=== PATIENT | male | born 1985 | race Hispanic/Latino ===

== ENCOUNTER 2016-10-09 23:57 | Observation (INO) | payer SELFPAY ==
[2016-10-10] MEDS ORDERED: Sodium Chloride 0.9% 1,000 ML IV STA (00:52)
--- NOTE | 2016-10-10 01:26 | ED PDOC ---
HPI: Abdomen Time Seen by Provider: 10/10/16 00:09 Chief Complaint (Nursing): Abdominal Pain Chief Complaint (Provider): abd pain, n/v/d History Per: Patient History/Exam Limitations: no limitations Onset/Duration Of Symptoms: Days Outside of [place] travel?: No Current Symptoms Are (Timing): Still Present Additional Complaint(s): 31yo male to female transgender patient presents to the ED with c/o epigastric and LUQ abdominal pain with associated n/v/d x 3 days. Patient reports 10 episodes of each and describes as watery. Last episode of vomiting was blood tinged. Denies drug use, alcohol use, abdominal surgeries. Of note, patient was sleeping prior to history and physical and needed to be physically awakened. Past Medical History Reviewed: Historical Data, Nursing Documentation, Vital Signs Vital Signs: Last Vital Signs Temp 98.7 F 10/10/16 00:00 Pulse 116 H 10/10/16 00:00 Resp 16 10/10/16 00:00 BP 122/66 10/10/16 00:00 Pulse Ox 100 10/10/16 01:32 - Medical History PMH: No Chronic Diseases - Family History Family History: States: No Known Family Hx - Social History Alcohol: None Drugs: Denies - Allergies Allergies/Adverse Reactions: Allergies Allergy/AdvReac Type Severity Reaction Status Date / Time acetaminophen [From Tylenol] Allergy RASH Verified 10/10/16 00:00 aspirin Allergy RASH Verified 10/10/16 00:00 Penicillins Allergy RASH Verified 10/10/16 00:00 Review of Systems ROS Statement: Except As Marked, All Systems Reviewed And Found Negative Gastrointestinal: Positive for: Nausea, Vomiting, Abdominal Pain (epigastric, LUQ ), Diarrhea Physical Exam - Reviewed Nursing Documentation Reviewed: Yes Vital Signs Reviewed: Yes - Physical Exam Appears: Positive for: Well, No Acute Distress Head Exam: Positive for: ATRAUMATIC, NORMAL INSPECTION, NORMOCEPHALIC Skin: Positive for: Normal Color, Warm, Dry Eye Exam: Positive for: Normal appearance, EOMI, PERRL ENT: Positive for: Normal ENT Inspection Neck: Positive for: Normal, Painless ROM, Supple Cardiovascular/Chest: Positive for: Regular Rate, Rhythm. Negative for: Murmur , Tachycardia Respiratory: Positive for: Normal Breath Sounds. Negative for: Wheezing, Respiratory Distress Gastrointestinal/Abdominal: Positive for: Bowel Sounds, Soft, Tenderness ( epigastric, LUQ ) Back: Positive for: Normal Inspection. Negative for: L CVA Tenderness, R CVA Tenderness Extremity: Positive for: Normal ROM. Negative for: Deformity, Swelling Neurologic/Psych: Positive for: Alert, Oriented - Laboratory Results Result Diagrams: 10/10/16 01:39 10/10/16 01:39 - ECG O2 Sat by Pulse Oximetry: 100 Pulse Ox Interpretation: Normal (RA) Medical Decision Making Medical Decision Makin: Impression: unspecified abdominal pain Plan: CMP, lipase, CBC, UA IVF, Protonix 40mg IVP, Zofran 4mg IVP reassess 330AM: Pt. sleeping in room, needing to be once again physically woken up. Tolerating PO, told patient to f/u w/ PMD or return for worsening or concerning symptoms. Scribe Attestation: Documented by Jose Souza acting as a scribe for Jimenez Sr MD. Provider Scribe Attestation: All medical record entries made by the Scribe were at my direction and personally dictated by me. I have reviewed the chart and agree that the record accurately reflects my personal performance of the history, physical exam, medical decision making, and the department course for this patient. I have also personally directed, reviewed, and agree with the discharge instructions and disposition. Disposition - Clinical Impression Clinical Impression: Gastroenteritis - Disposition Referrals: [facility] [Outside] Disposition: Routine/Home Disposition Time: 03:30 Condition: IMPROVED Instructions: Gastroenteritis (ED) - POA Present On Arrival: None
[2016-10-10 01:44] LABS: BASO % 0.3 % (0.0-2.0); EOS # 0.2 K/uL (0.0-0.7); EOS % 2.3 % (0.0-4.0); HEMATOCRIT 29.6 % (35.0-51.0); LYMPH # 1.3 K/uL (1.0-4.3); LYMPH % 19.9 % (20.0-40.0); MEAN CELL VOLUME 83.4 fl (80.0-94.0); MEAN CORPUSCULAR HEMOGLOBIN 26.9 pg (27.0-31.0); MEAN CORPUSCULAR HGB CONC 32.2 g/dL (33.0-37.0); MEAN PLATELET VOLUME 8.3 fl (7.2-11.7); MONO # 0.5 K/uL (0.0-0.8); MONO % 8.2 % (0.0-10.0); NEUT # 4.6 K/uL (1.8-7.0); NEUT % 69.3 % (50.0-75.0); RED CELL DISTRIBUTION WIDTH 17.6 % (11.5-14.5); WHITE BLOOD COUNT 6.7 K/uL (4.8-10.8)
[2016-10-10 01:50] LABS: CHLORIDE 108 mmol/L (98-107); SODIUM 142 mmol/l (132-148)
[2016-10-10 01:51] LABS: POTASSIUM 3.4 MMOL/L (3.6-5.0)
[2016-10-10 01:53] LABS: ALB/GLOB RATIO 1.3 (1.0-2.1); ALKALINE PHOSPHATASE 54 U/L (38-126); AST/SGOT 20 U/L (17-59); BILIRUBIN,TOTAL 0.3 mg/dl (0.2-1.3); BLOOD UREA NITROGEN 10 mg/dl (9-20); CARBON DIOXIDE 22 mmol/L (22-30); GFR AFRICAN-AMERICAN > 60; TOTAL PROTEIN 6.5 G/DL (6.3-8.2)
[2016-10-10 01:54] LABS: ALT/SGPT 26 U/L (21-72); GLUCOSE,RANDOM 97 mg/dL (75-110); LIPASE 82 U/L (23-300)
[2016-10-10 04:28] VITALS: PULSE 69
[2016-10-10] MEDS ORDERED: Iohexol 240 (50 ml) ONE (04:31)
[2016-10-10] MEDS ORDERED: Iohexol 240 (50 ml) PO ONE (04:31)
--- NOTE | 2016-10-10 07:06 | ED PDOC ---
- Laboratory Results Result Diagrams: 10/10/16 01:39 10/10/16 01:39 - ECG O2 Sat by Pulse Oximetry: 98 Medical Decision Making Medical Decision Makin:00 Patient signed out to me by Dr. Sr. Pending CT A/P Patient was seen overnight after presenting complaining of abdominal pain. Labs were consistent with mild anemia but otherwise grossly normal. UA negative. 9:00AM CT consistent with gastritis. Patient is tolerating po. She (patient identifies as female) was informed of her lab results and anemia. She is requesting additional pain medication. She is tolerating po and has been comfortably sleeping in bed pending CT. I explained to patient that I would treat her gastritis with pepcid and maalox and would recommend a bland diet. There is no indication for more narcotic medication and I am concerned about an element of abuse. Abdomen is soft NT/ND. She became irrate and reports that in [place] and [place] she would get additional medication. I explained to patient results of CT and labs and instructed her to return with any worsening symptoms. PROCEDURE: CT Abdomen and Pelvis with contrast HISTORY: epig/LUQ pain, vomiting and diarrhea COMPARISON: None. TECHNIQUE: Axial and reformatted coronal and sagittal CT images of the abdomen and pelvis were obtained after IV and oral contrast administration. Contrast dose: 95 mL of Omnipaque 300 Radiation dose: Total exam DLP = 546.3 mGy-cm. This CT exam was performed using one or more of the following dose reduction techniques: Automated exposure control, adjustment of the mA and/or kV according to patient size, and/or use of iterative reconstruction technique. FINDINGS: LOWER THORAX: Linear opacities at the posterior portion of the lungs may represent atelectasis or scar tissue. No evidence of significant pleural effusion or pneumothorax. LIVER: Mild hepatomegaly is noted. GALLBLADDER AND BILE DUCTS: The gallbladder is contracted. PANCREAS: Unremarkable. No gross lesion or ductal dilatation. SPLEEN: Unremarkable. ADRENALS: Unremarkable. No mass. KIDNEYS AND URETERS: Unremarkable. No hydronephrosis. No solid mass. VASCULATURE: Unremarkable. No aortic aneurysm. BOWEL: The stomach is mildly distended demonstrate [id number] wall thickening suspicious for gastritis. APPENDIX: No evidence of appendicitis. PERITONEUM: Unremarkable. No free fluid. No free air. LYMPH NODES: Unremarkable. No enlarged lymph nodes. BLADDER: Unremarkable. REPRODUCTIVE: Unremarkable. BONES: No acute fracture. OTHER FINDINGS: None. IMPRESSION: Mildly distended stomach demonstrate [id number]-zc-[id number] wall thickening suspicious for gastritis. Contracted gallbladder without CT evidence of cholecystitis. No evidence of pancreatitis or appendicitis. Disposition - Clinical Impression Clinical Impression: Gastritis - POA Present On Arrival: None - Disposition Disposition: Routine/Home Disposition Time: 09:28 Condition: IMPROVED
[2016-10-10] MEDS ORDERED: Sodium Chloride 0.9% 50 ML IV ONE (08:26)
[2016-10-10] MEDS ORDERED: Iohexol 300 100 ML IJ ONE (08:26)
[2016-10-10 08:53] VITALS: BP 104/58; RESP 18; TEMP 97.9
--- NOTE | 2016-10-10 09:17 | CT ---
PROCEDURE: CT Abdomen and Pelvis with contrast HISTORY: epig/LUQ pain, vomiting and diarrhea COMPARISON: None. TECHNIQUE: Axial and reformatted coronal and sagittal CT images of the abdomen and pelvis were obtained after IV and oral contrast administration. Contrast dose: 95 mL of Omnipaque 300 Radiation dose: Total exam DLP = 546.3 mGy-cm. This CT exam was performed using one or more of the following dose reduction techniques: Automated exposure control, adjustment of the mA and/or kV according to patient size, and/or use of iterative reconstruction technique. FINDINGS: LOWER THORAX: Linear opacities at the posterior portion of the lungs may represent atelectasis or scar tissue. No evidence of significant pleural effusion or pneumothorax. LIVER: Mild hepatomegaly is noted. GALLBLADDER AND BILE DUCTS: The gallbladder is contracted. PANCREAS: Unremarkable. No gross lesion or ductal dilatation. SPLEEN: Unremarkable. ADRENALS: Unremarkable. No mass. KIDNEYS AND URETERS: Unremarkable. No hydronephrosis. No solid mass. VASCULATURE: Unremarkable. No aortic aneurysm. BOWEL: The stomach is mildly distended demonstrate [id number]-[id number] wall thickening suspicious for gastritis. APPENDIX: No evidence of appendicitis. PERITONEUM: Unremarkable. No free fluid. No free air. LYMPH NODES: Unremarkable. No enlarged lymph nodes. BLADDER: Unremarkable. REPRODUCTIVE: Unremarkable. BONES: No acute fracture. OTHER FINDINGS: None. IMPRESSION: Mildly distended stomach demonstrate [id number]-jc-[id number] wall thickening suspicious for gastritis. Contracted gallbladder without CT evidence of cholecystitis. No evidence of pancreatitis or appendicitis.
[2016-10-10 09:21] LABS: RBC URINE 1 /hpf (0-3); URINE BILIRUBIN NEGATIVE (NEGATIVE); URINE BLOOD NEGATIVE (NEGATIVE); URINE COLOR YELLOW (YELLOW); URINE GLUCOSE (UA) NEG (Normal); URINE KETONE TRACE mg/dL (NEGATIVE); URINE LEUKOCYTE ESTERASE NEG Leu/uL (Negative); URINE PROTEIN NEGATIVE (NEGATIVE); URINE UROBILINOGEN 0.2-1.0 mg/dL (0.2-1.0); WBC URINE 3 /hpf (0-5)
[2016-10-10 09:29] VITALS: O2SAT 98
== END 2016-10-10 09:29 | disposition home or self-care (01) ==
LOC: H.ER 23:57 → H.EROBSV 10-10 04:37
PROVIDERS: ADMIT Emergency Medicine; ATTEND Emergency Medicine
DX: K52.9 Noninfective gastroenteritis and colitis, unspecified (principal); K29.70 Gastritis, unspecified, without bleeding; D64.9 Anemia, unspecified; F64.9 Gender identity disorder, unspecified
CPT/HCPCS: 74177; 80053; 81003; 83690; 85025; 96361; 96374; 96375; 99283; C9113; G0378; J2405; J7040; Q9966; Q9967